=== PATIENT | female | born 1945 | race Caucasian/White ===

== ENCOUNTER 2018-03-12 11:49 | Emergency (ER) | payer MEDICARE ==
[~2018-03-12] VITALS: Ht 160 cm; Wt 81.0 kg
[~2018-03-12 11:49] MED LIST: GABA300C10 PO; LINA5TAB PO
[2018-03-12 14:13] LABS: BASOPHILS # (AUTO) 0.07 x10^3/uL (0-0.1); BASOPHILS % (AUTO) 1 % (0-1); EOSINOPHILS # (AUTO) 0.19 x10^3/uL (0-0.4); EOSINOPHILS % (AUTO) 2 % (1-7); LYMPHOCYTES # (AUTO) 1.93 x10^3/uL (1-3.4); LYMPHOCYTES % (AUTO) 23 % (22-44); MD NO; MEAN CORPUSCULAR HEMOGLOBIN 30.2 pg (27.0-34.8); MEAN CORPUSCULAR HGB CONC 33.7 g/dL (32.4-35.8); MEAN CORPUSCULAR VOLUME 89.6 fL (80-100); MEAN PLATELET VOLUME 11.4 fL (7.4-10.4); MONOCYTES # (AUTO) 0.38 x10^3/uL (0.2-0.8); MONOCYTES % (AUTO) 5 % (2-9); NEUTROPHILS # (AUTO) 5.85 x10^3/uL (1.8-6.8); NEUTROPHILS % (AUTO) 70 % (42-75); PLATELET COUNT 265 x10^3/uL (130-400); RED CELL DISTRIBUTION WIDTH 12.7 % (9.6-15.2)
[2018-03-12 14:23] LABS: ALBUMIN 3.6 g/dL (3.4-5.0); ANION GAP 8 mmol/L (5-15); C-REACTIVE PROTEIN, QUANT 0.19 mg/dL (0.02-0.49); CALCIUM 8.9 mg/dL (8.5-10.1); CHLORIDE 109 mmol/L (98-107); CREATININE 0.87 mg/dL (0.55-1.02)
[2018-03-12 14:30] VITALS: BP 178/75
[2018-03-12] MEDS ORDERED: GLIM1TAB2 PO (14:30)
== END 2018-03-12 16:47 | disposition home or self-care (01) ==
LOC: ED 16:12
DX: L03.032 Cellulitis of left toe (principal); E11.621 Type 2 diabetes mellitus with foot ulcer; R51 Headache
CPT/HCPCS: 36415; 70450; 80048; 82040; 83605; 85025; 85651; 86140; 87040; 99284

== ENCOUNTER 2018-10-13 09:48 | Emergency (ER) | payer MEDICARE, MEDICAID ==
[~2018-10-13] VITALS: Ht 162.6 cm; Wt 79.0 kg
[~2018-10-13 09:48] MED LIST changes: +GLIM1TAB2 PO
[2018-10-13 10:34] LABS: BASOPHILS # (AUTO) 0.04 x10^3/uL (0-0.1); BASOPHILS % (AUTO) 0 % (0-1); EOSINOPHILS # (AUTO) 0.23 x10^3/uL (0-0.4); EOSINOPHILS % (AUTO) 3 % (1-7); LYMPHOCYTES # (AUTO) 2.45 x10^3/uL (1-3.4); LYMPHOCYTES % (AUTO) 26 % (22-44); MD NO; MEAN CORPUSCULAR HEMOGLOBIN 29.8 pg (27.0-34.8); MEAN CORPUSCULAR HGB CONC 32.8 g/dL (32.4-35.8); MEAN CORPUSCULAR VOLUME 90.9 fL (80-100); MEAN PLATELET VOLUME 12.3 fL (7.4-10.4); MONOCYTES # (AUTO) 0.43 x10^3/uL (0.2-0.8); MONOCYTES % (AUTO) 5 % (2-9); NEUTROPHILS # (AUTO) 6.33 x10^3/uL (1.8-6.8); NEUTROPHILS % (AUTO) 67 % (42-75); PLATELET COUNT 245 x10^3/uL (130-400); RED BLOOD COUNT 5.27 x10^6/uL (3.82-5.3); RED CELL DISTRIBUTION WIDTH 12.9 % (9.6-15.2)
[2018-10-13 10:44] LABS: ALBUMIN 3.6 g/dL (3.4-5.0); ANION GAP 8 mmol/L (5-15); C-REACTIVE PROTEIN, QUANT 0.12 mg/dL (0.02-0.49); CALCIUM 9.2 mg/dL (8.5-10.1); CHLORIDE 104 mmol/L (98-107); CREATININE 1.18 mg/dL (0.55-1.02)
[2018-10-13 10:50] LABS: HCT (SEDRATE) 47.5 % (34.6-47.8)
[2018-10-13 12:22] VITALS: BP 171/77
== END 2018-10-13 13:11 | disposition home or self-care (01) ==
LOC: ED 11:00
DX: M13.172 Monoarthritis, not elsewhere classified, left ankle and foot (principal); M10.9 Gout, unspecified; L89.892 Pressure ulcer of other site, stage 2; L03.116 Cellulitis of left lower limb; E11.65 Type 2 diabetes mellitus with hyperglycemia
CPT/HCPCS: 36415; 80048; 82040; 85025; 85651; 86140; 99284

== ENCOUNTER 2018-11-05 07:50 | Outpatient (CLI) | payer MEDICARE, MEDICAID | END 2018-11-05 23:59 | disposition home or self-care (01) | LOC: WOUND 07:50 | PROVIDERS: ATTEND Internal Medicine | DX: E11.621 Type 2 diabetes mellitus with foot ulcer (principal); E11.65 Type 2 diabetes mellitus with hyperglycemia; L97.522 Non-pressure chronic ulcer of other part of left foot with fat layer exposed; E11.40 Type 2 diabetes mellitus with diabetic neuropathy, unspecified; L84 Corns and callosities; M19.90 Unspecified osteoarthritis, unspecified site; M10.072 Idiopathic gout, left ankle and foot; E66.9 Obesity, unspecified; Z68.29 Body mass index [BMI] 29.0-29.9, adult; Z87.891 Personal history of nicotine dependence | CPT/HCPCS: 97597 ==

== ENCOUNTER 2018-11-08 12:08 | Outpatient (CLI) | payer MEDICARE, MEDICAID | END 2018-11-08 23:59 | disposition home or self-care (01) | LOC: CVU 12:08 | PROVIDERS: ATTEND Internal Medicine | DX: E11.51 Type 2 diabetes mellitus with diabetic peripheral angiopathy without gangrene (principal); M79.662 Pain in left lower leg; M79.661 Pain in right lower leg; E11.621 Type 2 diabetes mellitus with foot ulcer; L97.929 Non-pressure chronic ulcer of unspecified part of left lower leg with unspecified severity | CPT/HCPCS: 93922; 93925; 93970 ==

== ENCOUNTER 2018-11-12 11:11 | Outpatient (CLI) | payer MEDICARE, MEDICAID | END 2018-11-12 23:59 | disposition home or self-care (01) | LOC: WOUND 11:11 | PROVIDERS: ATTEND Internal Medicine | DX: E11.621 Type 2 diabetes mellitus with foot ulcer (principal); L97.522 Non-pressure chronic ulcer of other part of left foot with fat layer exposed; E11.65 Type 2 diabetes mellitus with hyperglycemia; E11.40 Type 2 diabetes mellitus with diabetic neuropathy, unspecified; L84 Corns and callosities; M19.90 Unspecified osteoarthritis, unspecified site; M10.072 Idiopathic gout, left ankle and foot; E66.9 Obesity, unspecified; Z68.29 Body mass index [BMI] 29.0-29.9, adult; Z87.891 Personal history of nicotine dependence | CPT/HCPCS: 97597 ==

== ENCOUNTER 2018-11-12 12:09 | Outpatient (CLI) | payer MEDICARE, MEDICAID | END 2018-11-12 23:59 | disposition home or self-care (01) | LOC: CFH 12:09 | PROVIDERS: ATTEND Internal Medicine | DX: M19.072 Primary osteoarthritis, left ankle and foot (principal); M20.22 Hallux rigidus, left foot; E11.621 Type 2 diabetes mellitus with foot ulcer; M79.89 Other specified soft tissue disorders; M77.32 Calcaneal spur, left foot ==

== ENCOUNTER 2018-12-10 12:53 | Outpatient (CLI) | payer MEDICARE, MEDICAID ==
[2018-12-13] MEDS ORDERED: GLIP2.5T3 PO (15:18)
[2018-12-13] MEDS ORDERED: FURO-93 PO (15:18)
[2018-12-13] MEDS ORDERED: POTA10TA6 PO (15:18)
[2018-12-20] MEDS ORDERED: COLC0.6T37 PO (13:47)
[2018-12-20] MEDS ORDERED: NAPR-850 PO (13:47)
[2018-12-24] MEDS ORDERED: INSU100I13 SQ-INSULIN (07:53)
[2018-12-24] MEDS ORDERED: TRAM50TA2 PO (07:53)
[2018-12-24] MEDS ORDERED: AMLO-150 PO (07:53)
[2018-12-24] MEDS ORDERED: INSU100I11 SQ-INSULIN (07:53)
[2018-12-24] MEDS ORDERED: GABA300C10 PO (07:53)
[2018-12-24] MEDS ORDERED: DOCU50LI26 PO (07:53)
== END 2018-12-10 23:59 | disposition home or self-care (01) ==
LOC: WOUND 12:53
PROVIDERS: ATTEND Internal Medicine
DX: E11.621 Type 2 diabetes mellitus with foot ulcer (principal); L97.522 Non-pressure chronic ulcer of other part of left foot with fat layer exposed; E11.65 Type 2 diabetes mellitus with hyperglycemia; E11.40 Type 2 diabetes mellitus with diabetic neuropathy, unspecified; L84 Corns and callosities; M19.90 Unspecified osteoarthritis, unspecified site; M10.072 Idiopathic gout, left ankle and foot; E66.9 Obesity, unspecified; Z68.29 Body mass index [BMI] 29.0-29.9, adult; Z87.891 Personal history of nicotine dependence
CPT/HCPCS: 97597

== ENCOUNTER 2019-08-30 12:22 | Inpatient (IN) | payer MEDICARE, MEDICAID ==
[~2019-08-30] VITALS: Ht 152.4 cm; Wt 85.0 kg
[~2019-08-30 12:22] MED LIST changes: +AMLO-150 PO; +COLC0.6T37 PO; +DOCU50LI26 PO; +FURO-93 PO; -GLIM1TAB2 PO; +GLIM1TAB7 PO; +GLIP2.5T3 PO; +INSU100I11 SQ-INSULIN; +INSU100I13 SQ-INSULIN; +NAPR-850 PO; +POTA10TA6 PO; +TRAM50TA2 PO
--- NOTE | 2019-08-30 12:36 | NUR ---
PT BIB [facility], C/O DIABETIC ULCER ON L GREAT TOE. HAS WORSENED OVER THE LAST TWO MONTHS. PT WITH HX DM WITH [facility] MANAGEMENT, PT STATES SHE HASNT BEEN ON "THE NEEDLE" MEANING INSULIN FOR MANY YRS. PER EMS BG 500. PT CURRENTLY RUNNING FLUIDS UPON ARRIVAL. PT TO CONT PULSE OX, BP.
--- NOTE | 2019-08-30 13:05 | NUR ---
PT RECIEVED 250CC TOTAL IVF
--- NOTE | 2019-08-30 13:05 | NUR ---
ASSISTED PT TO BEDSIDE COMMODE. PT TOLERATED WELL
[2019-08-30] MEDS ORDERED: SODIUM CHLORIDE FLUSH 10ML SYR IVF ONE (13:30)
[2019-08-30] MEDS ORDERED: CEFAZOLIN 1,000 MG IM ONE (13:30)
[2019-08-30] MEDS ORDERED: VANCOMYCIN PER PHARMACY MC ONE (13:30)
[2019-08-30] MEDS ORDERED: CEFAZOLIN PMX 1GM/50ML 50 ML ONE (13:45)
--- NOTE | 2019-08-30 13:45 | NUR ---
PER LUNCH RN REPORT, OK TO ADMIN ABX, NO BC NEEDED
[2019-08-30 13:48] LABS: BASOPHILS # (AUTO) 0.07 x10^3/uL (0-0.1); BASOPHILS % (AUTO) 1 % (0-1); EOSINOPHILS # (AUTO) 0.16 x10^3/uL (0-0.4); EOSINOPHILS % (AUTO) 2 % (1-7); LYMPHOCYTES # (AUTO) 1.88 x10^3/uL (1-3.4); LYMPHOCYTES % (AUTO) 23 % (22-44); MD NO; MEAN CORPUSCULAR HEMOGLOBIN 29.6 pg (27.0-34.8); MEAN CORPUSCULAR HGB CONC 33.2 g/dL (32.4-35.8); MEAN CORPUSCULAR VOLUME 89.2 fL (80-100); MEAN PLATELET VOLUME 12.8 fL (7.4-10.4); MONOCYTES # (AUTO) 0.35 x10^3/uL (0.2-0.8); MONOCYTES % (AUTO) 4 % (2-9); NEUTROPHILS # (AUTO) 5.65 x10^3/uL (1.8-6.8); NEUTROPHILS % (AUTO) 70 % (42-75); PLATELET COUNT 201 x10^3/uL (130-400); RED BLOOD COUNT 5.09 x10^6/uL (3.82-5.3); RED CELL DISTRIBUTION WIDTH 12.9 % (9.6-15.2)
[2019-08-30 13:59] LABS: ALBUMIN 3.2 g/dL (3.4-5.0); ANION GAP 5 mmol/L (5-15); CHLORIDE 103 mmol/L (98-107); CREATININE 1.15 mg/dL (0.55-1.02)
[2019-08-30] MEDS ORDERED: CEFAZOLIN PMX 1GM/50ML 50 ML IV ONE (14:00)
[2019-08-30] MEDS ORDERED: VANCOMYCIN 1,500 MG in SODIUM CHLORIDE 0.9% 250 ML IV ONE (14:00)
[2019-08-30] MEDS ORDERED: NEOSPORIN OINT. PKT 1 PACKET ONE (14:06)
--- NOTE | 2019-08-30 14:40 | NUR ---
CALLED TO RM, PT NEEDING ASSISTANCE FOR BEDSIDE COMMODE, ASSISTED PT, PT STEADY ON FEET.
--- NOTE | 2019-08-30 14:54 | NUR ---
PT RESTING ON GURNEY AT THIS TIME, BP ELEVATED 190S/70S. ERMD MADE AWARE, NO ORDERS RECIEVED AT THIS TIME. PT REQUESTING MEAL. OK PER MD TO ORDER MEAL TRAY FOR PT.
--- NOTE | 2019-08-30 15:15 | NUR ---
CALLED TO PT RM, PT WOULD LIKE BLANKETS ADJUSTED AND WARMER REPLACED.
--- NOTE | 2019-08-30 15:50 | NUR ---
PT PRESSING CALL LIGHT FOR RN TO ASSIST PT IN SPITTING IN TO SPIT BAG, PT FOUND OUT OF BED. PT INSTRUCTED TO GET BACK IN GURNEY. PT PULLING BP CUFF OFF BECAUSE ITS BOTHERING HER. WILL LEAVE OFF PER REQUEST AT THIS TIME. MD AWARE BP RUNNING HIGH. AWAITING ADMITTING
[2019-08-30] MEDS ORDERED: hydrALAzine 20 MG/ML, 1ML IV PRN (17:00)
[2019-08-30] MEDS: GABAPENTIN 100 MG CAPSULE PO SCH ×2 (17:00→20:27)
[2019-08-30] MEDS ORDERED: PHARMACY MAY ADJ FOR RENAL FX MC PRN (17:00)
[2019-08-30] MEDS ORDERED: ACETAMINOPHEN 325 MG TABLET PO PRN (17:00)
[2019-08-30] MEDS ORDERED: ONDANSETRON 2MG/ML, 2ML IVPush PRN (17:00)
[2019-08-30] MEDS: INSULIN LISPRO 100 UNITS/ML, PEN SQ-INSULIN SCH ×2 (17:00→21:05)
[2019-08-30] MEDS ORDERED: ONDANSETRON ODT 4 MG PO PRN (17:00)
[2019-08-30] MEDS ORDERED: VANCOMYCIN PER PHARMACY MC PRN (17:00)
[2019-08-30] MEDS ORDERED: ENOXAPARIN 40 MG/0.4 ML SQ SCH (17:00)
--- NOTE | 2019-08-30 17:21 | NUR ---
ATTEMTED TO CALL REPORT, RN NOT AVAILABLE PER UC, RN TO CALL BACK
[2019-08-30 18:07] LABS: HCT (SEDRATE) 46.7 % (34.6-47.8)
[2019-08-30] MEDS: SODIUM CHLORIDE 0.9% 1,000 ML IV SCH (18:31)
[2019-08-30 19:58] VITALS: BP 160/78
[2019-08-30] MEDS: PIPERACILLIN/TAZO/PMX 3.375GM 50 ML IV SCH (20:10)
[2019-08-30] MEDS: HEPARIN 5,000 UNITS/ML, 1ML SQ SCH (20:26)
[2019-08-30] MEDS ORDERED: PHARMACOKINETIC MONITORING MC PRN (20:30)
[2019-08-30] MEDS ORDERED: PHARMACOKINETIC CONSULTATION MC ONE (20:30)
[2019-08-31 02:37] VITALS: BP 117/68
[2019-08-31] MEDS: PIPERACILLIN/TAZO/PMX 3.375GM 50 ML IV SCH ×3 (04:01→20:23)
[2019-08-31] MEDS: SODIUM CHLORIDE 0.9% 1,000 ML IV SCH ×3 (04:43→21:32)
[2019-08-31] MEDS: HEPARIN 5,000 UNITS/ML, 1ML SQ SCH ×3 (04:43→21:31)
[2019-08-31 05:51] LABS: BASOPHILS # (AUTO) 0.04 x10^3/uL (0-0.1); BASOPHILS % (AUTO) 1 % (0-1); EOSINOPHILS # (AUTO) 0.14 x10^3/uL (0-0.4); EOSINOPHILS % (AUTO) 2 % (1-7); LYMPHOCYTES # (AUTO) 1.69 x10^3/uL (1-3.4); LYMPHOCYTES % (AUTO) 20 % (22-44); MD NO; MEAN CORPUSCULAR HEMOGLOBIN 28.9 pg (27.0-34.8); MEAN CORPUSCULAR HGB CONC 32.4 g/dL (32.4-35.8); MEAN CORPUSCULAR VOLUME 89.3 fL (80-100); MEAN PLATELET VOLUME 12.6 fL (7.4-10.4); MONOCYTES # (AUTO) 0.43 x10^3/uL (0.2-0.8); MONOCYTES % (AUTO) 5 % (2-9); NEUTROPHILS # (AUTO) 6.26 x10^3/uL (1.8-6.8); NEUTROPHILS % (AUTO) 73 % (42-75); PLATELET COUNT 192 x10^3/uL (130-400); RED BLOOD COUNT 4.76 x10^6/uL (3.82-5.3); RED CELL DISTRIBUTION WIDTH 12.6 % (9.6-15.2)
[2019-08-31 06:01] LABS: ALBUMIN 2.8 g/dL (3.4-5.0); ANION GAP 6 mmol/L (5-15); CALCIUM 8.4 mg/dL (8.5-10.1); CHLORIDE 109 mmol/L (98-107)
[2019-08-31 06:11] LABS: ALANINE AMINOTRANSFERASE 25 U/L (12-78); ALKALINE PHOSPHATASE 126 U/L (45-117); BILIRUBIN,TOTAL 0.5 mg/dL (0.2-1.0); CREATININE 0.91 mg/dL (0.55-1.02); TOTAL PROTEIN 5.9 g/dL (6.4-8.2)
[2019-08-31 06:51] VITALS: BP 139/75
[2019-08-31] MEDS: GABAPENTIN 100 MG CAPSULE PO SCH ×3 (08:46→21:31)
[2019-08-31] MEDS: INSULIN LISPRO 100 UNITS/ML, PEN SQ-INSULIN SCH ×4 (08:47→21:32)
[2019-08-31] MEDS: AMLODIPINE 5 MG TABLET PO SCH (08:47)
[2019-08-31 08:48] VITALS: BP 140/69
[2019-08-31 12:18] VITALS: BP 127/75
[2019-08-31] MEDS ORDERED: ATOR-2 PO (13:19)
[2019-08-31] MEDS: VANCOMYCIN 1,200 MG in SODIUM CHLORIDE 0.9% 250 ML IV SCH (14:00)
[2019-08-31 19:54] VITALS: BP 116/73
[2019-09-01 00:01] VITALS: BP 148/75
[2019-09-01] MEDS: PIPERACILLIN/TAZO/PMX 3.375GM 50 ML IV SCH ×3 (04:18→19:52)
[2019-09-01] MEDS: HEPARIN 5,000 UNITS/ML, 1ML SQ SCH ×3 (05:29→19:52)
[2019-09-01] MEDS: SODIUM CHLORIDE 0.9% 1,000 ML IV SCH ×2 (05:30→13:48)
[2019-09-01 07:15] VITALS: BP 152/76
[2019-09-01] MEDS: AMLODIPINE 5 MG TABLET PO SCH (08:13)
[2019-09-01] MEDS: INSULIN LISPRO 100 UNITS/ML, PEN SQ-INSULIN SCH ×4 (08:13→19:53)
[2019-09-01] MEDS: GABAPENTIN 100 MG CAPSULE PO SCH ×3 (08:13→19:53)
[2019-09-01 14:26] VITALS: BP 155/73
[2019-09-01] MEDS: VANCOMYCIN 1,200 MG in SODIUM CHLORIDE 0.9% 250 ML IV SCH (14:29)
[2019-09-01 19:37] VITALS: BP 175/87
[2019-09-02] MEDS: SODIUM CHLORIDE 0.9% 1,000 ML IV SCH (01:20)
[2019-09-02 02:00] VITALS: BP 160/81
[2019-09-02] MEDS: HEPARIN 5,000 UNITS/ML, 1ML SQ SCH ×2 (04:11→13:33)
[2019-09-02] MEDS: PIPERACILLIN/TAZO/PMX 3.375GM 50 ML IV SCH ×2 (04:11→12:05)
[2019-09-02 07:24] VITALS: BP 145/68
[2019-09-02 08:51] VITALS: BP 164/84
[2019-09-02] MEDS: AMLODIPINE 5 MG TABLET PO SCH (08:52)
[2019-09-02] MEDS: GABAPENTIN 100 MG CAPSULE PO SCH (08:52)
[2019-09-02] MEDS: INSULIN LISPRO 100 UNITS/ML, PEN SQ-INSULIN SCH ×2 (08:53→12:00)
[2019-09-02 14:10] VITALS: BP 172/91
[2019-09-02] MEDS: VANCOMYCIN 1,200 MG in SODIUM CHLORIDE 0.9% 250 ML IV SCH (14:39)
[2019-09-02] MEDS ORDERED: PIPERACILLIN/TAZO/PMX 3.375GM 50 ML IV SCH (18:00)
== END 2019-09-02 16:33 | disposition left against medical advice (07) | DRG 603 ==
LOC: ED 12:31 → EDIP 15:02 → 3N 19:09
PROVIDERS: ADMIT Internal Medicine; ATTEND Internal Medicine
DX: L03.116 Cellulitis of left lower limb (principal); E87.1 Hypo-osmolality and hyponatremia; E11.52 Type 2 diabetes mellitus with diabetic peripheral angiopathy with gangrene; E11.622 Type 2 diabetes mellitus with other skin ulcer; E11.628 Type 2 diabetes mellitus with other skin complications; L98.499 Non-pressure chronic ulcer of skin of other sites with unspecified severity; Z53.29 Procedure and treatment not carried out because of patient's decision for other reasons; E11.65 Type 2 diabetes mellitus with hyperglycemia; I10 Essential (primary) hypertension; I25.2 Old myocardial infarction; Z79.84 Long term (current) use of oral hypoglycemic drugs; Z86.73 Personal history of transient ischemic attack (TIA), and cerebral infarction without residual deficits; Z91.19 Patient's noncompliance with other medical treatment and regimen; Z95.0 Presence of cardiac pacemaker; Z95.5 Presence of coronary angioplasty implant and graft
CPT/HCPCS: 36415; 80048; 80053; 82040; 82962; 83036; 84443; 85025; 85651; 86140; 87040; 87070; 87077; 87186; 87205; 99285; G0378; J0690; J1644; J2543; J3370; J0360; J1815; J7030; J7050